=== PATIENT | male | born 1960 | race Caucasian/White ===

== ENCOUNTER 2025-04-04 09:28 | Emergency (ER) | payer MEDICAID, SELFPAY ==
[2025-04-04] VITALS (30 sets, daily range): BP systolic 152–197; BP diastolic 71–116; PULSE 50–104; RESP 8–20; TEMP 36.4; O2SAT 90–95
--- NOTE | 2025-04-04 09:45 | RT.EKG_ITS ---
APPROVED REPORT Exam: Resting ECG Reason for Exam: Tachycardia, HTN, recent cocaine use Patient Location: E HR:79 bpm ECG Measurements Heart Rate 79 AXIS ID 171 P 74 QRSd 79 QRS 69 QT 416 T -2 QTc 477 Conclusion Sinus rhythm...normal P axis, V-rate 60- 99 Probable left ventricular hypertrophy...multiple LVH criteria
--- NOTE | 2025-04-04 10:00 | DI.RAD_ITS ---
Exam(s) XR CHEST 2V PA LATERAL EXAM: XR CHEST 2V PA LATERAL CLINICAL HISTORY: Chest pain. TECHNIQUE: 2D digital imaging was performed. COMPARISON: No exams were available for comparison FINDINGS: 2 views: Heart size is normal. The mediastinum is not widened. Bilateral hyperinflation-COPD but no infiltrates nor pleural effusions. No pulmonary edema. IMPRESSION: No acute pulmonary findings.Bilateral hyperinflation-COPD. DATA REPOSITORY: RADIATION DOSE DELIVERED:
--- NOTE | 2025-04-04 10:01 | W.ED.GENAD ---
Discharge Plan Disposition Patient Disposition: Home Condition: Improving Discharge Details Clinical Impression: Pneumonia, Back pain Primary Care Provider: Donnell Doyle ED Provider: Romie Navarro Home Meds and New Rx's Prescriptions: New levofloxacin 750 mg tablet 750 mg PO DAILY Qty: 4 0RF Continued buprenorphine-naloxone [Suboxone] 1 EACH film 1 strip PO DAILY Patient Comments: Pt states he takes two 8 mg and one 2 mg daily. Discharge Instructions Instructions: Community-Acquired Pneumonia, Adult (DC), Low Back Pain ED Additional Instructions: Workup in the ER overall is reassuring. No obvious cardiac etiology. CT imaging did not reveal any kidney stone or emergent pathology. There does appear to be an pneumonia in the left lower lobe, you were given your first dose of antibiotics here in the ER and a prescription was provided. I do recommend that you stop all illicit drug use. You may use [id number] Tylenol and/or Motrin as directed for discomfort. I also recommend that you quit smoking. I have placed you on the care management list to help expedite outpatient primary care follow-up. Please watch for new or worsening symptoms and return immediately to the ER. Discharge Data Discharge Date/Time-TO BE ENTERED AT DEPARTURE: 04/04/25 14:01 HPI General Mode of arrival: ambulatory. Date/Time Provider Initiated Documentation: 04/04/25 09:42. Limitations to Documentation: no limitations. Information obtained by: patient. History of Present Illness 64 year old M presents to the emergency department with the chief complaint of Left back pain, described as severe, with intensity rated at 8. Quality is described as sharp, and is localized to the back and left. Patient reports no radiation. Patient started experiencing this day(s) (4) and it has been constant. No relieving factors improve symptom(s), No exacerbating factors reported . Patient notes nausea/vomiting (Just nausea). Patient did receive the following treatments prior to arrival, none Related Data Home Medications ?Medication ?Instructions ?Recorded ?Confirmed buprenorphine 12 mg-naloxone 3 mg 1 strip PO DAILY 08/25/14 04/04/25 sublingual film (Suboxone) levofloxacin 750 mg tablet 750 mg PO DAILY #4 tabs 04/04/25 Previous Rx's ?Medication ?Instructions ?Recorded levofloxacin 750 mg tablet 750 mg PO DAILY #4 tabs 04/04/25 Allergies Allergy/AdvReac Type Severity Reaction Status Date / Time No Known Allergies Allergy Unverified 04/04/25 10:45 General Stated Complaint: FlankPain KAY: 3 Review of Systems Constitutional Constitutional: Denies fever(s) and Denies headache(s) ENT Ears, Nose, Mouth, and Throat: Denies headache(s) and Denies neck pain Cardiovascular Cardiovascular: Reports chest pain and Reports dyspnea (Chronic, being worked up for COPD) Respiratory Respiratory: Reports cough (Chronic) and Reports dyspnea (Chronic, being worked up for COPD) Gastrointestinal Gastrointestinal: Denies abdominal pain, Denies change in bowel habits, Reports nausea and Denies vomiting Genitourinary Genitourinary: Denies hematuria and Denies dysuria Musculoskeletal Musculoskeletal: Reports back pain, Denies neck pain, Denies numbness, Denies radiating pain into limb and Denies tingling Integumentary/Breasts Skin/Breast: Denies rash Neurologic Neurologic: Denies headache(s), Denies numbness and Denies tingling Hematologic/Lymphatic Hematologic/Lymphatic: Denies easy bleeding and Denies easy bruising Exam Const General: cooperative, healthy appearing, comfortable and no acute distress Orientation: alert and awake [facility] Head: normal to inspection, normocephalic and atraumatic Face and sinus: normal facial exam Mouth: moist mucous membranes Eyes General: appearance normal, both eyes and all related structures Conjunctivae: conjunctivae normal Neck Neck: normal visual inspection, full ROM, no meningeal signs, trachea midline and supple Resp Effort & Inspection: normal respiratory effort, able to speak in complete sentences and cough Quality of cough: dry (Mild) Auscultation: diminished lung sounds bilaterally in the lower lung herman (Left worse than right) Cardio Rate: regular rate Rhythm: regular rhythm GI Palpation: soft, not firm, no guarding and nontender Back/Spine/Pelvis Back: CVA tenderness (Left) Skin General skin exam: no rashes or lesions noted Neuro General: patient alert, patient awake, patient oriented x3, moves all extremities and no focal motor deficits Cognition: normal cognition Speech: speech normal Gait: normal gait Motor: muscle tone normal throughout Sensory Exam: no sensory deficits noted Extrem General: normal to inspection, full ROM and capillary refill normal Psych Appearance: grossly normal Mental Status: mental status grossly normal Course Vital Signs Vital signs: Vital Signs Temperature 36.4 C 04/04/25 09:39 Pulse 92 H 04/04/25 09:39 Respiratory Rate 20 04/04/25 09:39 Blood Pressure 160/112 H 04/04/25 09:39 Pulse Oximetry 90 L 04/04/25 09:39 Temperature 36.4 C 04/04/25 09:41 Pulse 92 H 04/04/25 09:41 Respiratory Rate 20 04/04/25 09:41 Blood Pressure 160/112 H 04/04/25 09:41 Pulse Oximetry 90 L 04/04/25 09:41 Medical Decision Making 64-year-old male who does not regularly seek medical attention, smokes 1 pack of cigarettes daily, history of IV drug use, heroin, reports being clean for a few years currently on Suboxone presents with left back pain for the past 4 days. Pain began in a nontraumatic fashion. It is severe and constant. Mild nausea. Does admit to chronic shortness of breath, previously supposed to be worked up for COPD but has never done this. He admits to cocaine use 2 days ago but the pain did precede that use. He denies any chest pain, increased shortness of breath when compared to his baseline, abdominal pain, or vomiting. Has never had pain like this previously. Left back pain differential is wide. Certainly question renal stone, musculoskeletal pain, atypical chest pain, PE, pneumonia, etc. Plan to obtain IV access, initiate workup and provide full dose aspirin. Laboratory values were grossly unremarkable. Neutrophils slightly elevated 7.64. Magnesium minimally low at 1.6. Initial troponin of 5. BNP 190. Lipase 23. D-dimer 358. Urinalysis negative for infection, positive for cocaine. Given negative D-dimer, will not pursue chest CTA. Chest x-ray read by radiology as bilateral hyperinflation-COPD. Delta troponin 6. This is not appearing to be ACS. Will provide 30 IV Toradol as well as a Lidoderm patch. Will obtain renal colic CT given his left back pain with CVA discomfort. No radiation of discomfort around his abdomen or flank. Mild nausea. No vomiting, dysuria or hematuria. Upon reevaluation patient is resting comfortably sleeping, wakes easily. Heart rate is now in the 60s. Blood pressure still trending downward nicely when compared to his initial presentation. He reports significant improvement in his overall discomfort. Renal colic CT reveals 1. There is hyperdense material in the appendix but no evidence of obvious acute appendicitis. Also no evidence of diverticulitis. 2. No renal calculi nor hydronephrosis nor hydroureter. No calculi seen in the urinary bladder lumen. Benign cyst in the right kidney which does not require further imaging workup. 3. Mild infiltrate noted in both lung bases, slightly more so on the left side. There are no pleural effusions. Patient is a pack-a-day smoker, admits to chronic cough and shortness of breath. Left CVA tenderness could certainly be due to mild infiltrate in the left lower lobe. Workup otherwise unremarkable for any obvious emergent process. Discussed in length with patient. Provided with his first dose of 750 mg p.o. Levaquin. Will provide prescription for additional 4 days. Discussed the importance of smoking cessation, stopping illicit drugs, and establishing a primary care provider. Placed on the care management list to help expedite this process encouraged to watch for new, worsening, or evolving symptoms and return immediately to the ER. Standard discharge and return precautions were provided. Patient understands, is agreeable to this plan, and has no additional questions or concerns upon discharge. This documentation was generated using [employer] dictation system, please disregard any oddities of phrase or misspellings. Lab Data Lab results reviewed: Yes I reviewed the patient's lab results. Labs: Laboratory Tests Range/Units 04/04/25 04/04/25 04/04/25 10:07 10:37 11:07 WBC (4.4-10.8) 10^3/uL 9.60 RBC (4.36-5.78) 10^6/uL 5.28 Hgb (13.5-17.5) g/dL 14.8 Hct (40.0-50.0) % 45.7 MCV (80-95) fL 87 MCH (27.0-33.0) pg 28.0 MCHC (32.0-36.0) % 32.4 RDW (11.8-14.1) % 13.9 Plt Count (130-400) 10^3/uL 170 MPV (8.0-11.0) fL 10.3 Immature Gran % % 0.4 Neutrophils % % 79.6 Lymphocytes % % 14.5 Monocytes % % 4.5 Eosinophils % % 0.8 Basophils % % 0.2 Nucleated RBC % (0.0-0.3) % 0.0 Absolute Neutrophils (1.2-6.7) 10^3/uL 7.64 H Absolute Lymphocytes (1.2-3.4) 10^3/uL 1.39 Absolute Monocytes (0.1-0.8) 10^3/uL 0.43 Absolute Eosinophils (0.0-0.7) 10^3/uL 0.08 Absolute Basophils (0.0-0.2) 10^3/uL 0.02 PT (9.1-11.1) sec 10.7 INR (0.9-1.1) 1.1 APTT (20.6-30.2) sec 26.8 D-Dimer (<500) ng/mlFEU 358 Sodium (136-145) mmol/L 139 Potassium (3.5-5.1) mmol/L 4.2 Chloride (98-107) mmol/L 101 Carbon Dioxide (21.0-32.0) mmol/L 31.9 Anion Gap (3-11) mmol/L 6.1 BUN (7-18) mg/dL 20 H Creatinine (0.70-1.30) mg/dL 0.8 Est GFR (CKD-EPI 2020) (mL/min/1.73m2) 99.44 Glucose (74-106) mg/dL 102 Calcium (8.5-10.1) mg/dL 8.6 Magnesium (1.8-2.4) mg/dL 1.6 L Total Bilirubin (0.2-1.0) mg/dL 0.4 AST (15-37) U/L 18 ALT (16-63) U/L 21 Alkaline Phosphatase (46-116) U/L 74 Troponin I (<or=76) ng/L 5 6 NT-Pro-B Natriuret Pep (<300) pg/mL 190 Total Protein (6.4-8.2) g/dL 7.6 Albumin (3.4-5.0) g/dL 3.7 Lipase (<78) U/L 23 Urine Color (Yellow) Yellow Urine Clarity (Clear) Clear Urine pH (5-8) 7.0 Ur Specific [place] (1.005-1.025) 1.020 Urine Protein (Neg-Trace) mg/dL Negative Urine Ketones (Negative) mg/dL Negative Urine Blood (Negative) Negative Urine Nitrite (Negative) Negative Urine Bilirubin (Negative) Negative Urine Urobilinogen (Up to 0.2) mg/dL 0.2 Ur Leukocyte Esterase (Negative) Negative Urine Glucose (Negative) mg/dL Negative Urine Opiates Screen (Negative) Negative Urine Methadone Screen (Negative) Negative Ur Barbiturates Screen (Negative) Negative Ur Tricyclics Screen (Negative) Negative Ur Amphetamines Screen (Negative) Negative U Benzodiazepines Scrn (Negative) Negative Urine Cocaine Screen (Negative) Positive A Ur THC Screen (Negative) Negative Range/Units 04/04/25 13:07 WBC (4.4-10.8) 10^3/uL RBC (4.36-5.78) 10^6/uL Hgb (13.5-17.5) g/dL Hct (40.0-50.0) % MCV (80-95) fL MCH (27.0-33.0) pg MCHC (32.0-36.0) % RDW (11.8-14.1) % Plt Count (130-400) 10^3/uL MPV (8.0-11.0) fL Immature Gran % % Neutrophils % % Lymphocytes % % Monocytes % % Eosinophils % % Basophils % % Nucleated RBC % (0.0-0.3) % Absolute Neutrophils (1.2-6.7) 10^3/uL Absolute Lymphocytes (1.2-3.4) 10^3/uL Absolute Monocytes (0.1-0.8) 10^3/uL Absolute Eosinophils (0.0-0.7) 10^3/uL Absolute Basophils (0.0-0.2) 10^3/uL PT (9.1-11.1) sec INR (0.9-1.1) APTT (20.6-30.2) sec D-Dimer (<500) ng/mlFEU Sodium (136-145) mmol/L Potassium (3.5-5.1) mmol/L Chloride (98-107) mmol/L Carbon Dioxide (21.0-32.0) mmol/L Anion Gap (3-11) mmol/L BUN (7-18) mg/dL Creatinine (0.70-1.30) mg/dL Est GFR (CKD-EPI 2020) (mL/min/1.73m2) Glucose (74-106) mg/dL Calcium (8.5-10.1) mg/dL Magnesium (1.8-2.4) mg/dL Total Bilirubin (0.2-1.0) mg/dL AST (15-37) U/L ALT (16-63) U/L Alkaline Phosphatase (46-116) U/L Troponin I (<or=76) ng/L Cancelled NT-Pro-B Natriuret Pep (<300) pg/mL Total Protein (6.4-8.2) g/dL Albumin (3.4-5.0) g/dL Lipase (<78) U/L Urine Color (Yellow) Urine Clarity (Clear) Urine pH (5-8) Ur Specific [place] (1.005-1.025) Urine Protein (Neg-Trace) mg/dL Urine Ketones (Negative) mg/dL Urine Blood (Negative) Urine Nitrite (Negative) Urine Bilirubin (Negative) Urine Urobilinogen (Up to 0.2) mg/dL Ur Leukocyte Esterase (Negative) Urine Glucose (Negative) mg/dL Urine Opiates Screen (Negative) Urine Methadone Screen (Negative) Ur Barbiturates Screen (Negative) Ur Tricyclics Screen (Negative) Ur Amphetamines Screen (Negative) U Benzodiazepines Scrn (Negative) Urine Cocaine Screen (Negative) Ur THC Screen (Negative) ECG Data Attestation: I personally reviewed and interpreted this ECG (s) as follows: Interpretation: Sinus rhythm, ventricular rate of 79. Anterior Q waves, LVH. No STEMI. Please see official report by Dr. Michelle [facility] All Active Problems (Updated 04/04/25 @ 13:48 by RONN Troy) Back pain (Acute) Pneumonia (Acute) Social History Smoking/Tobacco Use Status: Current every day Smoking risk assessment performed?: Yes Alcohol Intake: never Drug use: Occasionally Substance use type: crack/cocaine Do you feel safe at home: Yes Do you feel safe in your relationship?: Yes
[2025-04-04 10:46] LABS: Abs Immature Grans 0.04 10^3/uL (0.0-0.06); Absolute Basophil Count 0.02 10^3/uL (0.0-0.2); Absolute Eosinophil Count 0.08 10^3/uL (0.0-0.7); Absolute Lymphocyte Count 1.39 10^3/uL (1.2-3.4); Absolute Monocyte Count 0.43 10^3/uL (0.1-0.8); Absolute Neutrophil Count 7.64 10^3/uL (1.2-6.7); Basophils % 0.2 %; Eosinophils % 0.8 %; HCT 45.7 % (40.0-50.0); HGB 14.8 g/dL (13.5-17.5); Immature Grans % 0.4 %; Lymphocytes % 14.5 %; MCHC 32.4 % (32.0-36.0); MCV 87 fL (80-95); MPV 10.3 fL (8.0-11.0); Monocytes % 4.5 %; Neutrophils % 79.6 %; Platelet Count 170 10^3/uL (130-400); RBC 5.28 10^6/uL (4.36-5.78); RDW 13.9 % (11.8-14.1); RDW-SD 43.8 fL
[2025-04-04] MEDS: Aspirin 81 MG CHEW 324 MG CH (10:51)
[2025-04-04 10:55] LABS: Bilirubin Negative (Negative); Blood Negative (Negative); Clarity Clear (Clear); Glucose Negative (Negative); Ketones Negative (Negative); Leukocyte Esterase Negative (Negative); Nitrite Negative (Negative); Urobilinogen 0.2 mg/dL (Up to 0.2)
[2025-04-04 11:15] LABS: INR 1.1 (0.9-1.1); PTT Activated 26.8 sec (20.6-30.2); Prothrombin Time 10.7 sec (9.1-11.1)
[2025-04-04 11:17] LABS: D-Dimer 358 ng/mlFEU (<500)
[2025-04-04 11:22] LABS: *AMPHETAMINES SCREEN URINE Negative (Negative); *BARBITURATES SCREEN URINE Negative (Negative); *BENZODIAZEPINES SCREEN URINE Negative (Negative); Cannabinoids THC Negative (Negative); Cocaine Screen,Urine Positive (Negative); METHADONE URINE SCREEN Negative (Negative); OPIATES URINE SCREEN Negative (Negative)
[2025-04-04 11:23] LABS: Tricyclic Antidepressants Negative (Negative)
[2025-04-04 11:27] LABS: ALT 21 U/L (16-63); AST 18 U/L (15-37); Albumin 3.7 g/dL (3.4-5.0); Alkaline Phosphatase 74 U/L (46-116); Anion Gap 6.1 mmol/L (3-11); BUN 20 mg/dL (7-18); Bilirubin, Total 0.4 mg/dL (0.2-1.0); CO2 31.9 mmol/L (21.0-32.0); CREATININE 0.8 mg/dL (0.70-1.30); Calcium 8.6 mg/dL (8.5-10.1); Chloride 101 mmol/L (98-107); Estimated GFR 99.44 (mL/min/1.73m2); Glucose 102 mg/dL (74-106); Lipase 23 U/L (<78); Magnesium 1.6 mg/dL (1.8-2.4); NT-proBNP 190 pg/mL (<300); Potassium 4.2 mmol/L (3.5-5.1); Sodium 139 mmol/L (136-145); Total Protein 7.6 g/dL (6.4-8.2); Troponin I 5 ng/L (<or=76)
[2025-04-04 11:29] LABS: Troponin I 6 ng/L (<or=76)
--- NOTE | 2025-04-04 11:30 | DI.CT_ITS ---
Exam(s) CT RENAL COLIC WO EXAM: CT RENAL COLIC WO CLINICAL HISTORY: L flank pain. TECHNIQUE: Imaging Protocol: Axial computed tomography images with coronal and sagittal reformatted images were created and reviewed CONTRAST MATERIAL: Intravenous: none Oral: None COMPARISON: CT PELVIC/LOWER ABD WITH CON(P) from 06/24/2011 FINDINGS: VISUALIZED LUNG BASES: Mild infiltrate in the left lung base left lower lobe posterior basal segment. Milder infiltrate noted in the right lung base. There are no pleural effusions evident.. ABDOMEN: There is no ascites. LIVER: There are no obvious focal hepatic lesions evident of this noninfused study. GALLBLADDER/BILIARY: No obvious gallbladder pathology. CBD is not dilated. PANCREAS: No evidence of pancreatic mass nor dilatation of the pancreatic duct. SPLEEN: Spleen is not enlarged. No obvious intrasplenic lesions. ADRENALS: There are no significant adrenal masses. KIDNEYS:There is a cyst towards the inferior pole of the right kidney which measures 2 cm. Does not require further workup. No solid renal masses. No calculi nor hydronephrosis on either side.. ABDOMINAL AORTA: Abdominal aorta is calcified but not enlarged. Iliac arteries also calcified but not enlarged. LYMPH NODES: There is no retroperitoneal nor paraaortic adenopathy. ABDOMINAL WALL: No evidence of significant anterior abdominal wall nor inguinal hernia. GI: There is no evidence of bowel obstruction, free air, nor abscess. PELVIS: LYMPH NODES: There is no intrapelvic nor inguinal adenopathy. GI: There is some hyperdense material in the appendix but no evidence of acute appendicitis.No evidence of sigmoid diverticulitis. URINARY BLADDER: No calculi nor obvious masses evident REPRODUCTIVE: Mild prostate enlargement and mild prostate calcification. OSSEOUS: No fractures nor significant osseous lesions. There is partial developmental fusion at L3-4 levels. There is some disc space narrowing at L4-5 and L2-3 levels. Mild facet arthropathy. IMPRESSION: 1. There is hyperdense material in the appendix but no evidence of obvious acute appendicitis. Also no evidence of diverticulitis. 2. No renal calculi nor hydronephrosis nor hydroureter. No calculi seen in the urinary bladder lumen. Benign cyst in the right kidney which does not require further imaging workup. 3. Mild infiltrate noted in both lung bases, slightly more so on the left side. There are no pleural effusions. Called by myself to ER provider 04/07/2025 at 1:01 p.m RADIATION DOSE DELIVERED: 241.03mGy.cm Total DLP DATA REPOSITORY: All CT scans at this facility are submitted to the National Radiology Data Registry (NRDR) Dose Index Registry (DIR) with the [employer] (A[employer]). RADIATION OPTIMIZATION: All CT scans at this facility use at least one of these dose optimization techniques: automated exposure control; mA and/or kV adjustment per patient size (includes targeted exams where dose is matched to clinical indication); or iterative reconstruction.
[2025-04-04] MEDS: Ketorolac 30 MG/ML VIAL IVP (12:05)
[2025-04-04] MEDS: Lidocaine 5% Patch 1 PATCH TP (12:49)
[2025-04-04] MEDS: levoFLOXacin 500 MG, levoFLOXacin 250 MG 750 MG PO (13:45)
--- NOTE | 2025-04-07 09:49 | NUR.NOTE ---
Accessed chart to reconcile orders for EKG with EKG?s in [employer]. Duplicate order cancelled. Nursing Note:
== END 2025-04-04 14:01 | disposition home or self-care (01) ==
PROVIDERS: Emergency Provider Physician Assistant; PCP General Practice
DX: J18.9 Pneumonia, unspecified organism (principal); M54.9 Dorsalgia, unspecified
CPT/HCPCS: 99284 ×2; 96374; 36415; 80053; 80307; 83690; 93005; 71046; 74176; 81003; 83735; 83880; 84484; 85025; 85379; 85610; 85730; 93010; J1885